=== PATIENT | female | born 1990 | race Caucasian/White ===

== ENCOUNTER 2017-11-16 19:59 | Inpatient (IN) | payer MEDICAID, OTHER ==
[2017-11-16 19:59] VITALS: BMI 27.4
[2017-11-16 20:53] LABS: HCG,QUALITATIVE URINE NEGATIVE (NEGATIVE)
[2017-11-16 20:55] LABS: SQUAMOUS EPITHIAL 64 /hpf (0-5); URINE BILIRUBIN NEGATIVE (NEGATIVE); URINE BLOOD 1+ (NEGATIVE); URINE CLARITY Hazy (Clear); URINE COLOR Amber (YELLOW); URINE GLUCOSE (UA) NORMAL (Normal); URINE LEUKOCYTE ESTERASE 1+ Leu/uL (Negative); URINE PROTEIN 1+ mg/dL (NEGATIVE)
[2017-11-16 21:01] LABS: GFR AFRICAN-AMERICAN > 60; GFR NON-AFRICAN AMERICAN > 60
[2017-11-16 21:02] LABS: ALB/GLOB RATIO 0.9 (1.0-2.1); ALBUMIN 3.9 g/dL (3.5-5.0); ALT/SGPT 38 U/L (9-52); AST/SGOT 61 U/L (14-36); BLOOD UREA NITROGEN 13 mg/dL (7-17)
[2017-11-16 21:06] LABS: BENZODIAZEPINES, UR NEGATIVE (NEGATIVE); PHENCYCLIDINE, UR NEGATIVE (NEGATIVE)
[2017-11-16 21:07] LABS: BARBITURATES, UR POSITIVE (NEGATIVE); OPIATES, UR POSITIVE (NEGATIVE)
[2017-11-16 21:14] LABS: BASO # 0.1 K/uL (0.0-0.2); BASO % 1.1 % (0.0-2.0); EOS # 0.1 K/uL (0.0-0.7); EOS % 1.7 % (0.0-4.0); HEMOGLOBIN 11.5 g/dL (11.0-16.0); LYMPH # 2.3 K/uL (1.0-4.3); LYMPH % 31.6 % (20.0-40.0); MEAN CORPUSCULAR HEMOGLOBIN 29.8 pg (27.0-31.0); MEAN CORPUSCULAR HGB CONC 34.3 g/dL (33.0-37.0); MEAN PLATELET VOLUME 8.6 fL (7.2-11.7); MONO # 0.4 K/uL (0.0-0.8); MONO % 6.1 % (0.0-10.0); NEUT # 4.2 K/uL (1.8-7.0); NEUT % 59.5 % (50.0-75.0); NRBC % 0.1 % (0.0-2.0); RBC 3.87 Mil/uL (3.80-5.20); RED CELL DISTRIBUTION WIDTH 13.6 % (11.5-14.5); WHITE BLOOD COUNT 7.1 K/uL (4.8-10.8)
[2017-11-16 21:19] LABS: MEAN CELL VOLUME 86.8 fL (81.0-99.0)
--- NOTE | 2017-11-16 22:24 | C.PDOC ---
History Of Present Illness Pt is here requesting detox from Heroin. Time Seen by Provider: 11/16/17 20:07 Chief Complaint (Nursing): Substance Abuse History Per: Patient Onset/Duration Of Symptoms: Days Current Symptoms Are (Timing): Still Present Suicide/Self Injury Attempted (Context): None Modifying Factor(s): Narcotics Severity: Moderate Associated Symptoms: denies: Suicidal Thoughts, Suicidal Plan Additional History Per: Prior Records Past Medical History Reviewed: Historical Data, Nursing Documentation, Vital Signs Vital Signs: Last Vital Signs Temp 98.1 F 11/16/17 22:20 Pulse 66 11/16/17 22:20 Resp 20 11/16/17 22:20 BP 102/62 11/16/17 22:20 Pulse Ox 98 11/16/17 22:20 - Medical History PMH: No Chronic Diseases - [facility] Procedures DETOXIFICATION SERVICES FOR SUBSTANCE ABUSE TREATMENT (08/12/15) EXTRACTION OF POC, LOW CERVICAL, OPEN APPROACH (08/12/15) GROUP [employer] FOR SUBSTANCE ABUSE TREATMENT, PSYCHOEDUCATION (08/12/15) OTHER SKIN & SUBQ I D (10/19/14) Family History: States: Unknown Family Hx - Social History Hx Tobacco Use: Yes Hx Alcohol Use: No Hx Substance Use: Yes (IVDU Heroin) - Immunization History Hx Tetanus Toxoid Vaccination: No Hx Influenza Vaccination: No Hx Pneumococcal Vaccination: No Review Of Systems Except As Marked, All Systems Reviewed And Found Negative. Constitutional: Negative for: Fever Cardiovascular: Negative for: Chest Pain Respiratory: Negative for: Shortness of Breath Gastrointestinal: Negative for: Vomiting, Abdominal Pain Musculoskeletal: Negative for: Neck Pain, Back Pain Neurological: Negative for: Weakness, Numbness Physical Exam - Physical Exam Appears: Non-toxic, No Acute Distress Skin: Normal Color, Warm, Dry Head: Atraumatic, Normacephalic Eye(s): bilateral: PERRL, EOMI Neck: Normal ROM, Supple Cardiovascular: Rhythm Regular Respiratory: Normal Breath Sounds, No Accessory Muscle Use Gastrointestinal/Abdominal: Soft, No Tenderness Extremity: Normal ROM, Other (track tim on arms) Neurological/Psych: Oriented x3, Normal Motor, Normal Sensation ED Course And Treatment - Laboratory Results Result Diagrams: 11/16/17 21:08 11/16/17 20:43 Interpretation Of Abnormal: UTI, urine C&S sent. Urine POC: Negative O2 Sat by Pulse Oximetry: 98 Pulse Ox Interpretation: Normal Progress Note: Pt is medically stable for detox admission. Please treat UTI with Cipro 500mg po for 5 days and follow up urine culture results. Disposition Counseled Patient/Family Regarding: Studies Performed, Diagnosis - Disposition Disposition: HOSPITALIZED Disposition Time: 22:26 Condition: STABLE - Clinical Impression Clinical Impression: Heroin dependence, UTI (urinary tract infection) Decision To Admit - Pt Status Changed To: Hospital Disposition Of: Inpatient - Admit Certification Admit to Inpatient:: After my assessment, the patient will require hospitalization for at least two midnights. This is because of the severity of symptoms shown, intensity of services needed, and/or the medical risk in this patient being treated as an outpatient. - InPatient: Physician Admission Certification: I certify that this patient requires 2 or more midnights of care for the following reason:: Detox. - . Bed Request Type: Detox Admitting Physician: Smita Rouse Patient Diagnosis: Heroin dependence, UTI (urinary tract infection)
[2017-11-17 10:23] VITALS: RESP 20
--- NOTE | 2017-11-17 12:58 | PCM.PSYCH ---
Initial Psychiatric Evaluation - Initial Psychiatric Evaluation Type of Admission: Voluntary Legal Status: Capacity Chief Complaint (in patient's own words): "Withdrawing" History of Present Illness and Precipitating Events: The pt is seen,chart reviewed and case discussed She is apoor historian and not very cooperative due to significant withdrawal sxs Patient is 27-year-old single, female presenting to the ED for Opiate Detoxification. She has a 2.5 y/o child who was taken away by [facility] at due to her heroin use during . Pt is single, homeless and unemployed. Patient reports she intravenously uses 30 bags of heroin daily for over 6 years and smokes a dime bag of marijuana weekly over 5 years. Patient denies cocaine use and not familiar with Barbiturates, however her urine toxicology returned positive for both (in addition to marijuana and opiates). She believes they were in the heroin bag. Patient reports two past detox admissions both at [facility] (formally known as [facility]). Her most recent admission was September 2017 when she left [place] because she couldn't take the withdrawal symptoms. She is given methadone detox but not feeling well yet. Patient denies psychiatric history or medical issues, denies past/present suicidal and homicidal ideation and psychosis. Unknown family psych hx Current Medications: Active Medications Generic Name Dose Route Start Last Admin Trade Name Freq PRN Reason Stop Dose Admin Ciprofloxacin 500 mg 11/17/17 10:00 11/17/17 09:53 Cipro PO 11/24/17 10:01 500 mg BID STERLING Administration Protocol Clonidine HCl 0.1 mg 11/17/17 00:29 Catapres PO Q6 PRN withdrawal symptoms Hydroxyzine HCl 50 mg 11/17/17 06:22 Atarax PO Q6 PRN Anxiety Ibuprofen 600 mg 11/17/17 06:21 Motrin Tab PO Q6H PRN Pain, moderate (4-7) Methadone HCl 25 mg 11/17/17 10:00 11/17/17 09:52 Methadone PO 11/22/17 09:59 25 mg Q24H STERLING Administration Taper Trazodone HCl 50 mg 11/17/17 00:28 11/17/17 00:46 Desyrel PO 50 mg HS PRN Administration Insomnia Past Psychiatric History - Past Psychiatric History Previous Treatment History: None Pertinent Medical Hx (Current Medical&Sleep Prob, Allergies): Allergies Allergy/AdvReac Type Severity Reaction Status Date / Time No Known Allergies Allergy Unverified 11/16/17 20:03 No Known Home Med 11/16/17 Review of Systems - Gastrointestinal Gastrointestinal: Abdominal Pain - Musculoskeletal Musculoskeletal: Arthralgias - Neurological Neurological: Restless Legs, Tremor - Psychiatric Psychiatric: Abnormal Sleep Pattern, Anxiety, Depression, Difficulty Concentrating, Mood Swings. absent: Hallucinations, Homicidal Ideation, Paranoia, Suicidal Ideation Mental Status Examination - Personal Presentation Personal Presentation: Looks stated age (unkempt) - Affect Affect: Constricted - Motor Activity Motor Activity: Calm - Reliability in Providing Information Reliability in Providing Information: Fair - Speech Speech: Organized - Mood Mood: Depressed, Anxious - Formal Thought Process Formal Thought Process: No Impairment - Cognitive Functions Orientation: Person, Place, Situation, Time Sensorium: Drowsy Attention/Concentration: Easily distracted Abstract Thinking: [place] Estimate of Intelligence: Average Judgement: Intact, as evidence by: Insight regarding need for hospitalization Memory: Recent intact, as evidence by: Ability to recall events of the day, Remote impaired as evidenced by: Inability to recall historical events - Risk Risk: Withdrawal, Diminished functioning - Strength & Assets Inventory Strength & Assets Inventory: Cooperative - Limitations Limitations: Living alone, Other DSM 5 DX - DSM 5 DSM 5 Diagnosis: Opioid withdrawal Opioid use d/o - severe cannabis use d/o- severe Depressive d/o -unspecified - Recommended/Plan of Treatment Treatment Recommendations and Plan of Treatment: Taper with methadone Gabapentin for augmentation if needed As needed medications All risks, benefits and alternatives of the meds discussed, and the pt agreed and understood. Attend groups and activities Supportive therapy and psychoeducation MN for abstinence CBT for relapse prevention Encourage MAT Refer to rehab or IOP, and self-help groups Smoking cessation with MN Nicotine patch if needed 34 min Projected ELOS: 4-5 days Prognosis: good with MAT and rehabilitation Discharge Plan and Discharge Criteria: no withdrawal symptoms Refer to rehabilitation or MAT - Smoking Cessation Smoking Cessation Initiated: Yes
--- NOTE | 2017-11-17 12:59 | PCM.BM ---
Treatment Plan Problems - Problems identified on initial assessmt potential for opiate withdrawal symptoms Date Initiated: 11/17/17 Assessment reference: NA Status: Active Treatment assets and liabiliti Patient Assests: adapts well, cooperative, motivated, ADL independent, negotiates basic needs Patient Liabilities: substance abuse - Milieu Protocol Maintain good personal hygiene: daily Encourage regular showers, daily Remind patient to perform daily oral care, daily Assist patient to perform ADL's Conduct patient checks and document Observation sheet: Q15 minutes Maintain personal safety: every shift Educate patient to report safety concerns to staff, every shift Monitor environment for contraband/sharps Medication safety: Monitor for expected outcome, potential side effects: every shift, Assess barriers to learning: every shift, Assess readiness for medication education: every shift
[2017-11-17 16:23] VITALS: BP 104/66; PULSE 86; TEMP 98.7; O2SAT 100
--- NOTE | 2017-11-17 18:44 | PCM.PYCHDC ---
Mental Status Examination - Mental Status Examination Orientation: Person, Place, Situation, Time Memory: Intact Mood: Neutral Affect: Constricted Speech: Soft Attention: WNL Concentration: WNL Association: WNL Fund of Knowledge: WNL Formal Thought Process: No Impairment Description of patient's judgement and insight: partially impaired Psychotic Thoughts and Behaviors: denies any AVH Suicidal Ideation: No Current Homicidal Ideation?: No Discharge Summary - Discharge Note Reason for Hospitalization: The pt is seen,chart reviewed and case discussed She is apoor historian and not very cooperative due to significant withdrawal sxs Patient is 27-year-old single, female presenting to the ED for Opiate Detoxification. She has a 2.5 y/o child who was taken away by [facility] at due to her heroin use during . Pt is single, homeless and unemployed. Patient reports she intravenously uses 30 bags of heroin daily for over 6 years and smokes a dime bag of marijuana weekly over 5 years. Patient denies cocaine use and not familiar with Barbiturates, however her urine toxicology returned positive for both (in addition to marijuana and opiates). She believes they were in the heroin bag. Patient reports two past detox admissions both at [facility] (formally known as [facility]). Her most recent admission was September 2017 when she left [place] because she couldn't take the withdrawal symptoms. She is given methadone detox but not feeling well yet. Patient denies psychiatric history or medical issues, denies past/present suicidal and homicidal ideation and psychosis. Unknown family psych hx Laboratory Data: Abnormal Lab Results 11/16/17 11/16/17 11/16/17 20:43 20:43 20:43 WBC RBC Hgb Hct MCV MCH MCHC RDW Plt Count MPV Neut % (Auto) Lymph % (Auto) [place] % (Auto) Eos % (Auto) Baso % (Auto) Neut # (Auto) Lymph # (Auto) [place] # (Auto) Eos # (Auto) Baso # (Auto) Sodium 143 Potassium 4.7 Chloride 104 Carbon Dioxide 25 Anion Gap 18 BUN 13 Creatinine 0.6 L Est GFR ( Amer) > 60 Est GFR (Non-Af Amer) > 60 Random Glucose 87 Calcium 9.0 Total Bilirubin 1.1 AST 61 H ALT 38 Alkaline Phosphatase 37 L Total Protein 8.1 Albumin 3.9 Globulin 4.2 H Albumin/Globulin Ratio 0.9 L Urine Color [place] Urine Clarity Hazy Urine pH 5.0 Ur Specific [place] 1.026 Urine Protein 1+ H Urine Glucose (UA) Normal Urine Ketones Trace Urine Blood 1+ H Urine Nitrate Positive H Urine Bilirubin Negative Urine Urobilinogen 2.0 H Ur Leukocyte Esterase 1+ H Urine WBC (Auto) 20 H Urine RBC (Auto) 4 H Ur Squamous Epith Cells 64 H Urine HCG, Qual Negative Urine Opiates Screen Positive H Urine Methadone Screen Negative Ur Barbiturates Screen Positive H Ur Phencyclidine Scrn Negative Ur Amphetamines Screen Negative U Benzodiazepines Scrn Negative U Oth Cocaine Metabols Positive H U Cannabinoids Screen Positive H Alcohol, Quantitative < 10 11/16/17 21:08 WBC 7.1 RBC 3.87 Hgb 11.5 D Hct 33.6 L MCV 86.8 D MCH 29.8 MCHC 34.3 RDW 13.6 Plt Count 180 MPV 8.6 Neut % (Auto) 59.5 Lymph % (Auto) 31.6 [place] % (Auto) 6.1 Eos % (Auto) 1.7 Baso % (Auto) 1.1 Neut # (Auto) 4.2 Lymph # (Auto) 2.3 [place] # (Auto) 0.4 Eos # (Auto) 0.1 Baso # (Auto) 0.1 Sodium Potassium Chloride Carbon Dioxide Anion Gap BUN Creatinine Est GFR ( Amer) Est GFR (Non-Af Amer) Random Glucose Calcium Total Bilirubin AST ALT Alkaline Phosphatase Total Protein Albumin Globulin Albumin/Globulin Ratio Urine Color Urine Clarity Urine pH Ur Specific [place] Urine Protein Urine Glucose (UA) Urine Ketones Urine Blood Urine Nitrate Urine Bilirubin Urine Urobilinogen Ur Leukocyte Esterase Urine WBC (Auto) Urine RBC (Auto) Ur Squamous Epith Cells Urine HCG, Qual Urine Opiates Screen Urine Methadone Screen Ur Barbiturates Screen Ur Phencyclidine Scrn Ur Amphetamines Screen U Benzodiazepines Scrn U Oth Cocaine Metabols U Cannabinoids Screen Alcohol, Quantitative Consultations:: List each consultation separately and include: 1. Reason for request. 2. Findings. 3. Follow-up Summary of Hospital Course include:: 1. Description of specific treatment plan utilized for patients during their course of treatmen. 2. Summarize the time- course for resolution of acute symptoms and/or regressed behaviors. 3. Describe issues identified and worked on during hospitalization. 4. Describe medication utilized. 5. Describe medical problems identified and treated. 6. Reassessment of suicide risk Summary of Hospital Course: As per the staff, patient reported improvement in her symptoms and reported improvement in nausea, vomiting and cramps. However she signed AMA. As per the patient she is doing much better and her withdrawal symptoms are getting better and she does not need 4 days of detox. Patient remained calm and cooperative. She denied any shakes, sweating or any other withdrawal symptoms. She denied any feelings of hopelessness, helplessness , and worthlessness. She denied any suicidal ideation or homicidal ideation, and denied any auditory or visual hallucinations. - Final Diagnosis (DSM 5) Condition upon Discharge: STABLE DSM 5: Opioid withdrawal Opioid use d/o - severe cannabis use d/o- severe Depressive d/o -unspecified Disposition: AGAINST MEDICAL ADVICE Follow-up Treatment Plan: Education: Pt was educated and counseled about the risks and benefits of taking and not taking medications. Pt was educated and counseled about the risks of drinking and abusing drugs. Pt was educated and counseled to go to the ER or call 911 if pt develop suicidal ideation or homicidal ideation, worsening of symptoms or severe side effects of the meds. - Smoking Cessation Smoking Cessation Medication prescribed: No - Antipsychotic Medications Pt discharged on 2 or more routine antipsychotic medications: No
== END 2017-11-17 18:57 | disposition left against medical advice (07) | DRG 743 ==
LOC: SUPCPDRO 19:59 → C.ER 19:59 → C.7D 22:28
PROVIDERS: ADMIT Psychiatry & Neurology Psychiatry; ATTEND Psychiatry & Neurology Psychiatry
PROC: HZ2ZZZZ Detoxification Services for Substance Abuse Treatment (ICD-10-PCS; principal; 2017-11-16)
PROC: HZ52ZZZ Individual Psychotherapy for Substance Abuse Treatment, Cognitive-Behavioral (ICD-10-PCS; 2017-11-16)
PROC: HZ59ZZZ Individual Psychotherapy for Substance Abuse Treatment, Supportive (ICD-10-PCS; 2017-11-16)
PROC: HZ56ZZZ Individual Psychotherapy for Substance Abuse Treatment, Psychoeducation (ICD-10-PCS; 2017-11-16)
PROC: HZ42ZZZ Group Counseling for Substance Abuse Treatment, Cognitive-Behavioral (ICD-10-PCS; 2017-11-16)
PROC: HZ46ZZZ Group Counseling for Substance Abuse Treatment, Psychoeducation (ICD-10-PCS; 2017-11-16)
PROC: GZHZZZZ Group Psychotherapy (ICD-10-PCS; 2017-11-16)
PROC: GZ58ZZZ Individual Psychotherapy, Cognitive-Behavioral (ICD-10-PCS; 2017-11-16)
PROC: GZ56ZZZ Individual Psychotherapy, Supportive (ICD-10-PCS; 2017-11-16)
DX: F11.23 Opioid dependence with withdrawal (principal); N39.0 Urinary tract infection, site not specified; F12.20 Cannabis dependence, uncomplicated; Z59.0 Homelessness